=== PATIENT | male | born 2000 | race Caucasian/White ===

== ENCOUNTER 2018-05-27 04:49 | Emergency (ER) | payer SELFPAY ==
[~2018-05-27] VITALS: Ht 177.8 cm; Wt 72.1 kg
[2018-05-27 04:55] VITALS: BP_SYST 119
[2018-05-27 05:20] VITALS: BP_SYST 121
== END 2018-05-27 05:20 ==
LOC: SED 04:49
DX: S00.83XA Contusion of other part of head, initial encounter (principal); S20.221A Contusion of right back wall of thorax, initial encounter; Y04.0XXA Assault by unarmed brawl or fight, initial encounter; Y93.89 Activity, other specified; Y92.89 Other specified places as the place of occurrence of the external cause; Y99.8 Other external cause status
CPT/HCPCS: 99283